=== PATIENT | male | born 1960 ===

== ENCOUNTER 2020-04-05 09:24 | Outpatient (REF) | payer OTHER, SELFPAY ==
[2020-04-05 10:28] LABS: COVID-19 Test Negative (Negative); IDNOW Serial# 55D5AD1C
== END 2020-04-05 09:25 | disposition home or self-care (01) ==
LOC: HO.EMPCOV 09:24
PROVIDERS: Visit Provider Internal Medicine
DX: Z20.828 Contact with and (suspected) exposure to other viral communicable diseases (principal)
CPT/HCPCS: 87635; C9803

== ENCOUNTER 2020-04-11 08:02 | Emergency (ER) | payer OTHER, SELFPAY ==
[2020-04-11 08:20] VITALS: BP 161/97; PULSE 79; RESP 16; O2SAT 97; BMI 29.2
[2020-04-11 08:25] VITALS: TEMP 36.6
--- NOTE | 2020-04-11 08:25 | ECG_ITS ---
Test Reason : SOB Blood Pressure : / mmHG Vent. Rate : 075 BPM Atrial Rate : 075 BPM P-R Int : 144 ms QRS Dur : 102 ms QT Int : 378 ms P-R-T Axes : 066 -03 029 degrees QTc Int : 422 ms Normal sinus rhythm Possible Left atrial enlargement Otherwise normal ECG No previous ECGs available Referred By: Kalie Phillips Electronically Signed By:JOSEPH MILLER MD
--- NOTE | 2020-04-11 08:27 | ED_ITS ---
HPI - URI/Sore Throat General Chief Complaint: Upper Respiratory Symptoms Stated Complaint: chest pain,bodyaches,coughing Time Seen by Provider: 04/11/20 08:13 Source: patient Mode of arrival: ambulatory Limitations: no limitations History of Present Illness HPI Narrative: 59-year-old male with a past medical history of high cholesterol here with multiple complaints. 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 He was tested for COVID 7 days ago was negative. Three days ago he developed body aches, headache, cough and tactile temperatures. Denies any chills. Continued symptoms through this morning. Does also have some chest discomfort. No shortness of breath, leg swelling or pain. No recent travel or surgical history. MD elicited complaint: fever and cough Onset (ago): day(s) Consistency: intermittent Severity: mild Able to tolerate fluids by mouth: Yes Exacerbating factors: nothing Relieving factors: nothing Associated symptoms: fever, myalgias, headache, cough and chest pain Treatments prior to arrival: none Related Data Allergies Allergy/AdvReac Type Severity Reaction Status Date / Time No Known Allergies Allergy Unverified 01/28/20 15:08 Review of Systems Review of Systems: Yes all other systems are reviewed and are negative Constitutional: Constitutional: Reports no additional constitutional complaints, Reports body ache(s), Reports chills, Reports fever(s), Reports headache(s) and Denies weakness Eyes: Eyes: Reports no additional eye complaints and Denies change in vision ENT: Reports system reviewed and no additional complaints, except as documented, Denies dizziness, Reports headache(s), Denies nasal congestion, Denies nasal discharge and Denies neck pain Cardiovascular: Cardiovascular: Reports no additional cardiovascular complaints, Reports chest pain, Denies leg edema and Denies dyspnea Respiratory: Respiratory: Reports no additional respiratory complaints, Denies cough and Denies dyspnea Gastrointestinal: Gastrointestinal: Reports no additional gastrointestinal complaints, Denies abdominal pain, Denies diarrhea, Denies nausea and Denies vomiting Genitourinary: Genitourinary: Denies urinary incontinence Musculoskeletal: Musculoskeletal: Reports no additional musculoskeletal complaints, Denies back pain, Denies arthralgias, Denies joint swelling, Denies neck pain, Denies numbness and Denies tingling Integumentary/Breasts: Skin/Breast: Reports system reviewed and no additional complaints, except as docu and Denies rash Neurologic: Reports system reviewed and no additional complaints, except as documented, Denies Abnormal speech present, Denies dizziness, Reports headache(s), Denies numbness, Denies tingling and Denies weakness PMFSH Past Medical History Attestation statement: The following information was validated with the patient. Source: old records reviewed and nursing notes reviewed Medical History High cholesterol High cholesterol Social History Social History Advance Directives: No Advance Directives Information Provided: Yes Physical Exam Vital Signs: Vital Signs: Last Vital Signs Temp 98 F 04/11/20 08:25 Pulse 77 04/11/20 12:19 Resp 16 04/11/20 12:19 BP 134/66 04/11/20 12:19 Pulse Ox 98 04/11/20 12:19 Body Mass Index 29.2 Const: General: cooperative, healthy appearing, comfortable and no acute distress Orientation/consciousness: patient oriented x3 Limitations: no limitations HENMT: Head: Yes normal to inspection Ears: hearing grossly normal bilaterally General nose exam: Normal external nose present Face and sinus: Yes normal facial exam Mouth: Normal oral and palatal mucosa present Throat: Yes posterior oropharynx normal Eyes: General: appearance normal, both eyes and all related structures Pupils: Equal, round and reactive pupils present Neck: Neck: Yes normal visual inspection Chest: Chest palpation & inspection: normal inspection of the chest Resp: Effort & Inspection: normal respiratory effort Auscultation: clear to auscultation bilaterally Cardio: Rate: regular rate Rhythm: regular rhythm Peripheral pulses: Peripheral pulses 2+ throughout GI: Inspection: Yes normal to inspection Palpation (GI): Soft to palpation and nontender Auscultation: normal bowel sounds Back/Spine/Pelvis: Thoracic/Lumbar Spine: thoracic and lumbar spine normal to inspection Skin: General skin exam: no rashes or lesions noted Neuro: General: patient oriented x3, no focal motor deficits and normal sensation to monofilament Cranial nerves: Yes Equal, round and reactive pupils present Cognition (Neuro): normal cognition Speech: No Abnormal speech present Gait exam (Neuro): Normal gait present Motor exam (neuro): 5/5 motor strength present throughout Extrem: General: Yes normal to inspection Course Course Course Narrative: 59-year-old male here with chest pain, body aches, tactile temps, headache, cough for 3 days. Exposure to COVID 1 week ago. Had testing which was negative. On arrival well appearing, stable vital signs and afebrile. Will need labs, chest x-ray, EKG, flu and COVID swab. 1040- COVID positive. Labs are unremarkable with the exception of mildly elevated troponin. Will plan for 3 are repeat. Chest x-ray and EKG unremarkable. Patient is stable saturations and is well-appearing. Plan for discharge home after repeat troponin. Of note, the patient does have a leukopenia and he was made aware of this. Instructed to follow up for repeat labs once he has recovered from a COVID infection. 1215- repeat troponin unchanged. Plan for discharge home. Reviewed worrisome signs and symptoms and when to return to the emergency department. Comfortable with discharge home. MDM - URI/Sore Throat MDM Narrative Medical decision making narrative: viral syndrome, COVID-19 infection, ACS, pneumonia, PE less likely pneumonia with normal chest x-ray. Less likely PE with no clinical signs and symptoms of PE with a PERC score is 0. less likely ACS with 2- tropon ins and unremarkable EKG. Medical Records Attestation: I reviewed the patient's medical records. Lab Data Attestation: I reviewed the patient's lab results. Result diagrams: 04/11/20 08:34 04/11/20 08:34 Labs: Lab Results 04/11/20 04/11/20 04/11/20 Range/Units 08:34 08:34 08:34 WBC 2.9 L (4.8-10.8) X10*3/uL RBC 5.74 (4.60-5.80) X10*6/uL Hgb 15.4 (14.0-18.0) g/dl Hct 46.4 (42-52) % MCV 80.8 (80-98) fL MCH 26.8 L (27.0-33.0) pg MCHC 33.2 (31.0-36.0) g/dl RDW 13.4 (11.0-16.0) % Plt Count 128 L (160-400) X10*3/uL MPV 10.9 (9.4-12.4) fL Immature Gran % (Auto) 0.0 (0.0-0.4) % Neut % (Auto) 50.4 (45-73) % Lymph % (Auto) 35.5 (20-40) % [place] % (Auto) 13.4 H (2-11) % Eos % (Auto) 0.7 (0-4) % Baso % (Auto) 0.0 (0-2) % Lymph # (Auto) 1.0 L (1.2-4.9) X10*3/uL [place] # (Auto) 0.4 (0.1-1.2) X10*3/uL Eos # (Auto) 0.0 (0.0-0.4) X10*3/uL Baso # (Auto) 0.0 (0.0-0.2) X10*3/uL Abs Immat Gran (auto) 0.00 (0.00-0.03) X10*3/uL Absolute Neuts (auto) 1.5 L (2.0-8.3) X10*3/uL Absolute Nucleated RBC 0.000 (0.0-0.012) X10*3/uL Nucleated RBC % (auto) 0.0 (0.0-0.2) /100WBC Sodium 139 (135-145) mmol/L Potassium 3.4 (3.3-5.1) mmol/l Chloride 102 (96-108) mmol/L Carbon Dioxide 28 (22-29) mmol/L Anion Gap 12 (12-20) BUN 16 (9-16) mg/dL Creatinine 1.24 (0.5-1.4) mg/dL Estim Creat Clear Calc 58.8 Estimated GFR 60 Random Glucose 152 H (60-115) mg/dL Calcium 8.5 (8.4-10.2) mg/dL Magnesium 2.0 (1.6-2.6) mg/dL Total Bilirubin 0.4 (0.0-1.0) mg/dL Direct Bilirubin < 0.2 (0.0-0.5) mg/dL AST 17 (5-37) U/L ALT 22 (0-40) U/L Alkaline Phosphatase 72 (39-117) U/L Troponin I High Sens 11.8 (<3.5-35.0) ng/L Total Protein 6.2 L (6.5-8.0) g/dL Albumin 3.8 (3.5-5.0) g/dL Coronavirus (PCR) (Negative) Influenza Type A (PCR) (Negative) Influenza Type B (PCR) (Negative) RSV RNA Qual (PCR) (Negative) 04/11/20 04/11/20 Range/Units 08:34 10:38 WBC (4.8-10.8) X10*3/uL RBC (4.60-5.80) X10*6/uL Hgb (14.0-18.0) g/dl Hct (42-52) % MCV (80-98) fL MCH (27.0-33.0) pg MCHC (31.0-36.0) g/dl RDW (11.0-16.0) % Plt Count (160-400) X10*3/uL MPV (9.4-12.4) fL Immature Gran % (Auto) (0.0-0.4) % Neut % (Auto) (45-73) % Lymph % (Auto) (20-40) % [place] % (Auto) (2-11) % Eos % (Auto) (0-4) % Baso % (Auto) (0-2) % Lymph # (Auto) (1.2-4.9) X10*3/uL [place] # (Auto) (0.1-1.2) X10*3/uL Eos # (Auto) (0.0-0.4) X10*3/uL Baso # (Auto) (0.0-0.2) X10*3/uL Abs Immat Gran (auto) (0.00-0.03) X10*3/uL Absolute Neuts (auto) (2.0-8.3) X10*3/uL Absolute Nucleated RBC (0.0-0.012) X10*3/uL Nucleated RBC % (auto) (0.0-0.2) /100WBC Sodium (135-145) mmol/L Potassium (3.3-5.1) mmol/l Chloride (96-108) mmol/L Carbon Dioxide (22-29) mmol/L Anion Gap (12-20) BUN (9-16) mg/dL Creatinine (0.5-1.4) mg/dL Estim Creat Clear Calc Estimated GFR Random Glucose (60-115) mg/dL Calcium (8.4-10.2) mg/dL Magnesium (1.6-2.6) mg/dL Total Bilirubin (0.0-1.0) mg/dL Direct Bilirubin (0.0-0.5) mg/dL AST (5-37) U/L ALT (0-40) U/L Alkaline Phosphatase (39-117) U/L Troponin I High Sens 11.2 (<3.5-35.0) ng/L Total Protein (6.5-8.0) g/dL Albumin (3.5-5.0) g/dL Coronavirus (PCR) POSITIVE A (Negative) Influenza Type A (PCR) NEGATIVE (Negative) Influenza Type B (PCR) NEGATIVE (Negative) RSV RNA Qual (PCR) NEGATIVE (Negative) Imaging Data Chest x-ray: Attestation: I personally reviewed and interpreted this imaging study as follows: Radiologist's impression: EXAMINATION: XR CHEST CLINICAL INFORMATION: Chest pain COMPARISON: Chest radiographs 2017, 10/14/2009 TECHNIQUE: Portable upright AP view of the chest was obtained. FINDINGS: The lungs are clear. There is no pneumothorax, pleural reaction, consolidation, or effusion groundglass opacity The heart is normal in size. The hilar and mediastinal contours are normal. There are degenerative changes right acromioclavicular joint. XR/XR chest 1V IMPRESSION: Unremarkable examination. ECG Data Attestation: I personally reviewed and interpreted this ECG as follows: ECG interpretation date: 04/11/20 ECG interpretation time: 08:45 Interpretation: normal sinus rhythm, rate of 75, normal VT, normal QRS, normal QT Discharge Plan Discharge Clinical Impression: COVID-19, Leukopenia Patient Disposition: Home, Self-Care Instructions: COVID-19 (Coronavirus Disease 2019) (ED) Additional Instructions: Take tylenol or motrin if able as needed for pain or fever. Stay well hydrated with fluids like water, gatorade and/or powerade. Wash hands at home. If living with others try to self isolate if possible. If unable wear a mask around others in your home and wash hands frequently. If COVID test is positive you will need to self isolate for a total of 14 days from when your symptoms started. You may return to work sooner if testing is negative and all symptoms resolved >72 hours. You should return to the emergency department for severe shortness of breath, chest pain or fever which does not respond to both tylenol and motrin at home. Your white blood cell count today was 2.9. Once you recovered from your C OVID infection follow-up with your doctor for repeat check Referrals: Sylvester Zaragoza MD [Primary Care Provider] - 2 days Stand Alone Forms: Work/School Release Interventions: ED Discharge Assessment Last Done: 04/11/20 12:18 Discharge Date/Time: 04/11/20 12:20
[2020-04-11 08:40] LABS: MANUAL DIFF FLAG NO
[2020-04-11 08:42] LABS: Eosinophils Percent Auto 0.7 % (0-4); Hematocrit 46.4 % (42-52); Hemoglobin 15.4 g/dl (14.0-18.0); Lymphocytes Percent Auto 35.5 % (20-40); Mean Corpuscular HGB Conc 33.2 g/dl (31.0-36.0); Mean Corpuscular Hemoglobin 26.8 pg (27.0-33.0); Mean Corpuscular Volume 80.8 fL (80-98); Mean Platelet Volume 10.9 fL (9.4-12.4); Monocytes Absolute Auto 0.4 X10*3/uL (0.1-1.2); Monocytes Percent Auto 13.4 % (2-11); Neutrophils Absolute Auto 1.5 X10*3/uL (2.0-8.3); Neutrophils Percent Auto 50.4 % (45-73); Platelet Count 128 X10*3/uL (160-400); Red Blood Count 5.74 X10*6/uL (4.60-5.80); Red Cell Distribution Width 13.4 % (11.0-16.0); White Blood Count 2.9 X10*3/uL (4.8-10.8)
[2020-04-11 09:05] LABS: Alanine Aminotransferase 22 U/L (0-40); Albumin Level 3.8 g/dL (3.5-5.0); Alkaline Phosphatase 72 U/L (39-117); Anion Gap 12 (12-20); Aspartate Amino Transferase 17 U/L (5-37); Bilirubin Direct < 0.2 mg/dL (0.0-0.5); Bilirubin Total 0.4 mg/dL (0.0-1.0); Blood Urea Nitrogen 16 mg/dL (9-16); Calcium 8.5 mg/dL (8.4-10.2); Carbon Dioxide 28 mmol/L (22-29); Chloride 102 mmol/L (96-108); Creatinine Clr Calc Pharmacy 58.8; Estimated Glomerular Filt Rate 60; Glucose Random 152 mg/dL (60-115); Potassium 3.4 mmol/l (3.3-5.1); Sodium 139 mmol/L (135-145); Total Protein 6.2 g/dL (6.5-8.0)
[2020-04-11 09:08] LABS: Troponin-I High Sensitivity 11.8 ng/L (<3.5-35.0)
[2020-04-11 09:24] LABS: Influenza A PCR NEGATIVE (Negative); Influenza B PCR NEGATIVE (Negative); Resp Syncy Virus RNA Qual PCR NEGATIVE (Negative); SARS COV2 PCR INHOUSE POSITIVE (Negative)
[2020-04-11 11:49] LABS: Troponin-I High Sensitivity 11.2 ng/L (<3.5-35.0)
[2020-04-11 12:19] VITALS: BP 134/66; PULSE 77; RESP 16; O2SAT 98
== END 2020-04-11 12:20 | disposition home or self-care (01) ==
PROVIDERS: Nurse Practitioner Family; Emergency Provider Internal Medicine; PCP Internal Medicine
DX: U07.1 COVID-19 (principal); D72.819 Decreased white blood cell count, unspecified; M79.10 Myalgia, unspecified site; R50.9 Fever, unspecified; R05 Cough; R07.89 Other chest pain
CPT/HCPCS: 0241U; 36415; 71045; 80048; 80076; 83735; 84484; 85025; 93005; 99283

== ENCOUNTER 2020-04-21 08:41 | Outpatient (REF) | payer SELFPAY ==
[2020-04-21 10:11] LABS: Cholesterol 209 mg/dL
[2020-04-21 12:18] LABS: SARS COV2 IgG Negative (Negative)
== END 2020-04-21 08:42 | disposition home or self-care (01) ==
LOC: HO.LNC 08:41
PROVIDERS: Visit Provider Pathology Anatomic Pathology & Clinical Pathology
DX: Z20.828 Contact with and (suspected) exposure to other viral communicable diseases (principal)
CPT/HCPCS: 82465; 86769

== ENCOUNTER → 2020-05-20 11:17 | Outpatient (BNVA) | payer OTHER, SELFPAY | PROVIDERS: PCP Internal Medicine | DX: Z76.89 Persons encountering health services in other specified circumstances (principal) | CPT/HCPCS: 12001; 99212 ==

== ENCOUNTER 2020-06-20 09:30 | Outpatient (REF) | payer SELFPAY ==
[2020-06-20 10:14] LABS: Cholesterol 238 mg/dL
[2020-06-20 12:17] LABS: SARS COV2 IgG Positive (Negative)
== END 2020-06-20 09:31 | disposition home or self-care (01) ==
LOC: HO.LNC 09:30
PROVIDERS: Visit Provider Pathology Anatomic Pathology & Clinical Pathology
DX: Z13.89 Encounter for screening for other disorder (principal)
CPT/HCPCS: 36415; 82465; 86769

== ENCOUNTER 2020-08-26 08:26 | Outpatient (REF) | payer OTHER, SELFPAY ==
[2020-08-26 10:08] LABS: COVID-19 Test Negative (Negative)
== END 2020-08-26 08:27 | disposition home or self-care (01) ==
LOC: HO.LAB 08:26
PROVIDERS: Visit Provider Internal Medicine
DX: Z20.822 Contact with and (suspected) exposure to COVID-19 (principal)
CPT/HCPCS: 36415; 87635; C9803; U0003; U0005

== ENCOUNTER 2021-05-09 07:36 | Outpatient (REF) | payer OTHER, SELFPAY ==
[2021-05-09 10:37] LABS: Influenza A PCR NEGATIVE (Negative); Influenza B PCR NEGATIVE (Negative); Resp Syncy Virus RNA Qual PCR NEGATIVE (Negative); SARS COV2 PCR INHOUSE NEGATIVE (Negative)
== END 2021-05-09 07:37 | disposition home or self-care (01) ==
LOC: HO.LAB 07:36
PROVIDERS: Visit Provider Internal Medicine
DX: Z20.822 Contact with and (suspected) exposure to COVID-19 (principal)
CPT/HCPCS: 0241U

== ENCOUNTER 2021-07-21 06:27 | Outpatient (REF) | payer OTHER, SELFPAY ==
[2021-07-21 07:03] LABS: MANUAL DIFF FLAG NO
[2021-07-21 07:35] LABS: Basophils Percent Auto 0.4 % (0-2); Eosinophils Absolute Auto 0.1 X10*3/uL (0.0-0.4); Eosinophils Percent Auto 1.7 % (0-4); Hematocrit 44.3 % (42.0-52.0); Imm Gran Abs Auto 0.01 X10*3/uL (0.00-0.03); Imm Gran Pct Auto 0.2 % (0.0-0.4); Lymphocytes Absolute Auto 1.4 X10*3/uL (1.2-4.9); Lymphocytes Percent Auto 29.8 % (20-40); Mean Corpuscular HGB Conc 31.6 g/dl (31.0-36.0); Mean Corpuscular Hemoglobin 25.8 pg (27.0-33.0); Mean Corpuscular Volume 81.6 fL (80.0-98.0); Mean Platelet Volume 11.1 fL (9.4-12.4); Monocytes Absolute Auto 0.4 X10*3/uL (0.1-1.2); Monocytes Percent Auto 8.8 % (2-11); Neutrophils Absolute Auto 2.8 x10*3/uL (2.0-8.3); Neutrophils Percent Auto 59.1 % (45-73); Platelet Count 199 X10*3/uL (160-400); Red Blood Count 5.43 X10*6/uL (4.60-5.80); White Blood Count 4.8 X10*3/uL (4.8-10.8)
--- NOTE | 2021-07-21 07:38 | ECG_ITS ---
Test Reason : DIZZINESS Blood Pressure : / mmHG Vent. Rate : 058 BPM Atrial Rate : 058 BPM P-R Int : 138 ms QRS Dur : 110 ms QT Int : 414 ms P-R-T Axes : 057 028 009 degrees QTc Int : 406 ms Sinus bradycardia Otherwise normal ECG When compared with ECG of 11-APR-2020 08:45, No significant change was found Referred By: Eryn Díaz Electronically Signed By:NATHEN BAUTISTA MD
[2021-07-21 07:46] LABS: Estimated Average Glucose 131 mg/dL; Hemoglobin A1c % 6.2 %
[2021-07-21 07:54] LABS: Alanine Aminotransferase 19 U/L (0-40); Albumin Level 4.1 g/dL (3.5-5.0); Alkaline Phosphatase 80 U/L (39-117); Anion Gap 10 (12-20); Aspartate Amino Transferase 17 U/L (5-37); Bilirubin Total 0.5 mg/dL (0.0-1.0); Blood Urea Nitrogen 23 mg/dL (9-16); Calcium 9.1 mg/dL (8.4-10.2); Carbon Dioxide 28 mmol/L (22-29); Chloride 105 mmol/L (96-108); Cholesterol 236 mg/dL; Estimated Glomerular Filt Rate 59; Glucose Fasting 117 mg/dL (60-99); HDL Cholesterol 49 mg/dL; LDL Cholesterol Calculated 173 mg/dl; Potassium 4.1 mmol/L (3.3-5.1); Sodium 139 mmol/L (135-145); Total Protein 6.5 g/dL (6.5-8.0); Triglycerides 71 mg/dL
[2021-07-21 08:16] LABS: TSH reflex Free T4 1.28 uIU/mL (0.32-4.0)
[2021-07-21 11:58] LABS: Folate 13.2 ng/mL (> or = 4.0); Vitamin B12 247 pg/mL (200-900)
[2021-07-27 08:06] LABS: Vitamin D 25-OH, D2 <4 ng/mL; Vitamin D 25-OH, D3 33 ng/mL; Vitamin D 25-OH, Total 33 ng/mL (30-100)
== END 2021-07-21 06:28 | disposition home or self-care (01) ==
LOC: HO.LAB 06:27
PROVIDERS: PCP Internal Medicine; Visit Provider Nurse Practitioner Acute Care
DX: R42 Dizziness and giddiness (principal)
CPT/HCPCS: 36415; 80053; 80061; 82306; 82607; 82746; 83036; 84443; 85025; 93005

== ENCOUNTER → 2021-08-30 11:15 | Outpatient (BNVA) | payer OTHER, SELFPAY | PROVIDERS: PCP Internal Medicine; Visit Provider Physician Assistant | DX: Z13.89 Encounter for screening for other disorder (principal) | CPT/HCPCS: 12001; 73140; 99204 ==

== ENCOUNTER → 2021-09-01 09:12 | Outpatient (BNVA) | payer OTHER, SELFPAY | PROVIDERS: PCP Internal Medicine; Visit Provider Physician Assistant | DX: Z13.89 Encounter for screening for other disorder (principal) | CPT/HCPCS: 99213 ==

== ENCOUNTER → 2021-09-06 13:50 | Outpatient (BNVA) | payer OTHER, SELFPAY | PROVIDERS: PCP Internal Medicine; Visit Provider Physician Assistant | DX: Z13.89 Encounter for screening for other disorder (principal) | CPT/HCPCS: 99213 ==

== ENCOUNTER 2021-11-29 05:59 | Outpatient (REF) | payer OTHER, SELFPAY ==
[2021-11-29 06:04] LABS: MANUAL DIFF FLAG NO
[2021-11-29 07:33] LABS: Basophils Percent Auto 0.7 % (0-2); Eosinophils Absolute Auto 0.1 X10*3/uL (0.0-0.4); Eosinophils Percent Auto 1.7 % (0-4); Hematocrit 42.1 % (42.0-52.0); Hemoglobin 13.6 g/dl (14.0-18.0); Imm Gran Abs Auto 0.02 X10*3/uL (0.00-0.03); Imm Gran Pct Auto 0.3 % (0.0-0.4); Lymphocytes Absolute Auto 1.5 X10*3/uL (1.2-4.9); Lymphocytes Percent Auto 25.7 % (20-40); Mean Corpuscular HGB Conc 32.3 g/dl (31.0-36.0); Mean Corpuscular Hemoglobin 25.6 pg (27.0-33.0); Mean Corpuscular Volume 79.1 fL (80.0-98.0); Mean Platelet Volume 11.6 fL (9.4-12.4); Monocytes Absolute Auto 0.6 X10*3/uL (0.1-1.2); Monocytes Percent Auto 10.4 % (2-11); Neutrophils Absolute Auto 3.6 x10*3/uL (2.0-8.3); Neutrophils Percent Auto 61.2 % (45-73); Platelet Count 194 X10*3/uL (160-400); Red Blood Count 5.32 X10*6/uL (4.60-5.80); White Blood Count 5.9 X10*3/uL (4.8-10.8)
[2021-11-29 07:59] LABS: Alanine Aminotransferase 23 U/L (0-40); Alkaline Phosphatase 100 U/L (39-117); Anion Gap 12 (12-20); Aspartate Amino Transferase 16 U/L (5-37); Bilirubin Total 0.3 mg/dL (0.0-1.0); Blood Urea Nitrogen 22 mg/dL (9-16); Calcium 8.9 mg/dL (8.4-10.2); Carbon Dioxide 30 mmol/L (22-29); Chloride 102 mmol/L (96-108); Cholesterol 181 mg/dL; Estimated Glomerular Filt Rate 53; Glucose Fasting 133 mg/dL (60-99); HDL Cholesterol 39 mg/dL; LDL Cholesterol Calculated 113 mg/dl; Potassium 3.7 mmol/L (3.3-5.1); Sodium 140 mmol/L (135-145); Total Protein 6.4 g/dL (6.5-8.0); Triglycerides 145 mg/dL
== END 2021-11-29 06:00 | disposition home or self-care (01) ==
LOC: HO.LAB 05:59
PROVIDERS: PCP Internal Medicine; Visit Provider Nurse Practitioner Acute Care
DX: E78.5 Hyperlipidemia, unspecified (principal)
CPT/HCPCS: 36415; 80053; 80061; 85025

== ENCOUNTER 2021-12-08 08:04 | Day surgery (SDC) | payer OTHER, SELFPAY ==
[2021-12-04 10:12] VITALS: BMI 28.6
--- NOTE | 2021-12-07 09:54 | HO.ANESPROP2 ---
Documented by User: Teresa Hawthorne NP 12/07/21 09:57 HPI - Anesthesia Eval Consult details Narrative: 61yo M for Colonoscopy [facility] Active Problems Active Problems: All Active Problems (Updated 12/04/21 @ 10:13 by Prerna Weinstein RN) COVID-19 (Acute) Hypertension (Acute) Family history of colon cancer (Acute) Impaired fasting blood sugar (Acute) Anemia (Acute) Type 2 diabetes mellitus with hyperglycemia (Acute) Tubular adenoma of colon (Acute) Hyperlipidemia (Acute) Past Medical History Medical History Colon cancer screening Dizziness History of COVID-19 Hyperlipidemia Lightheadedness Nausea Negative depression screening Tubular adenoma of colon Vitamin D deficiency Surgical History Surgical History H/O colonoscopy Social History Social History Housing: House Patient Tobacco Use Status: Former Tobacco user Tobacco use type: Cigarette Years Smoked: 15 e-Cigarette/Vaping Use: Never Used Use of substances other than those prescribed or required for medical reasons: No Are you DNR?: No Advance Directives: No Advance Directives Information Provided: Yes service: No Current occupational status: employed Cognitive needs: No Hearing needs: No Vision needs: Yes Meds Allergies Allergy/AdvReac Type Severity Reaction Status Date / Time No Known Allergies Allergy Verified 11/30/21 14:36 Exam Exam Date and Time: December 07, 2021 0954 Height,Weight and Vital Signs: Height 5 ft 4 in Weight 75.75 kg Pertinent Lab Results Pertinent Lab Results: Laboratory Tests 11/29/21 11/29/21 06:02 06:02 WBC 5.9 Hgb 13.6 L Hct 42.1 Plt Count 194 Sodium 140 Potassium 3.7 Chloride 102 Carbon Dioxide 30 H BUN 22 H Creatinine 1.36 Narrative Narrative: EKG 07/2021 Vent. Rate : 058 BPM ? ? Atrial Rate : 058 BPM ?? P-R Int : 138 ms? QRS Dur : 110 ms ? ? QT Int : 414 ms ? ? ? P-R-T Axes : 057 028 009 degrees ?? QTc Int : 406 ms ? Sinus bradycardia Otherwise normal ECG When compared with ECG of 11-APR-2020 08:45, No significant change was found Assessment and Plan Assessment Anesthesia Assessment: Chart Reviewed Documented by User: Nikki Barnett MD 12/08/21 08:53 PMFSH Past Medical History Medical History Colon cancer screening Dizziness History of COVID-19 Hyperlipidemia Lightheadedness Nausea Negative depression screening Tubular adenoma of colon Vitamin D deficiency Surgical History Surgical History H/O colonoscopy History of Problems with Anesthesia: No Social History Social History Housing: House Patient Tobacco Use Status: Former Tobacco user Tobacco use type: Cigarette Years Smoked: 15 e-Cigarette/Vaping Use: Never Used Use of substances other than those prescribed or required for medical reasons: No Are you DNR?: No Advance Directives: No Advance Directives Information Provided: Yes service: No Current occupational status: employed Cognitive needs: No Hearing needs: No Vision needs: Yes Meds Allergies Allergy/AdvReac Type Severity Reaction Status Date / Time No Known Allergies Allergy Verified 11/30/21 14:36 Exam Airway Mallampati Class: II TM Dist: >3cm Neck ROM: Full Loose/Missing/Broken Teeth: No Heart: RRR Lungs: CTA Assessment and Plan Assessment Anesthesia Assessment: Anesthesia Plan Discussed Final Anesthetic Review History of Problems with Anesthesia: No NPO: Yes ASA Class: II Final Preanesthetic Review: Meds/Allgs Chart Reviewed, Consent Obtained/Reviewed and Anes Risks/Benef Reviewed Patient Risk: Low Procedure Risk: Low Anesthetic Plan Anesthetic Plan: MAC: Disposition: Standard PACU
[2021-12-08 08:10] VITALS: BMI 28.1
--- NOTE | 2021-12-08 08:16 | MHC.SHP ---
Pre-Procedural Eval Section A Date of Service: 12/08/21 The patient is an INPATIENT: No The History & Physical has been completed within 30 days and I have reviewed it.: No Section B Chief Complaint: screening Details of Present Illness: Colon cancer screening, history of colon polyps, family history of colon cancer Relevant Family History (Specify if Yes): Yes Relevant Social History: Tobacco Use (Former smoker) Present Medications: see Short Stay Collaborative assessment Medical History: Significant History (Colon cancer screening Dizziness Hyperlipidemia Lightheadedness Nausea Negative depression screening Tubular adenoma of colon Vitamin D deficiency) History of Previous Operations: Relevant previous surgery/procedure and date(s) (History of colonoscopy) Allergies: Allergies Allergy/AdvReac Type Severity Reaction Status Date / Time No Known Allergies Allergy Verified 11/30/21 14:36 Review of Systems Sugical H&P ROS: Negative: Constitution, Cardiovascular, Respiratory and Gastrointestinal Exam Surgical H&P Exam: Normal: Heart, Normal: Lungs, Normal: Extremities and Normal: Abdomen Plan Diagnosis/Plan: Unchanged I have reviewed the history and physical and performed a pertinent physical examination on my patient. No changes have occurred unless specified.
--- NOTE | 2021-12-08 08:19 | P.BOP_ITS ---
Brief Operative Note Date of Service: 12/08/21 Pre-op diagnosis: Colon cancer screening, history of colon polyps, family history of colon cancer Post-op diagnosis: other (Colon polyp, diverticulosis, hemorrhoids) Procedure: COLONOSCOPY TILL CECUM WITH SNARE POLYPECTOMY Consent: Indications for the procedure and potential complications of bleeding, perforation, reaction to medications and missed diagnosis were discussed with the patient and informed consent was obtained. Instrument: Olympus CF H 190 L variable stiffness adult colonoscope Monitoring: Vital signs and clinical assessment, intermittent blood pressure monitoring, continuous EKG monitoring, Pulse oximetry and Carbon Dioxide monitoring were done throughout the procedure. Colon withdrawl time was 14 minutes. Procedure: The patient was placed in the left lateral decubitis position and pre-procedure medications were administered. After a digital rectal examination of the ano-rectum, the video colonoscope was inserted into the rectum and advanced through the colon to the cecum. The colonoscope was slowly withdrawn in a retrograde panoramic fashion and the colon mucosa was carefully examined including a retroflexed view of the rectum. Findings and interventions are described below. Procedure Difficulty: Without difficulty Findings: Terminal Ileum: Not evaluated Cecum: Normal Ascending Colon: A 7-8 mm sessile polyp removed with a cold snare Transverse Colon: Normal Descending Colon: Normal Sigmoid Colon: Moderate diverticulosis Rectum: Normal Ano-rectum: Small internal hemorrhoids Colon preparation: Good Impression and Post Procedure Diagnosis: Colonoscopy Findings: One small polyp removed Moderate diverticulosis seen in the sigmoid colon Small hemorrhoids on retroflexed exam. Plan: Letter will be sent with pathology results Repeat Colonoscopy interval based on path results - in 5 years if polyps are adenomatous and 10 years if polyps are hyperplastic. Above findings were reviewed with the patient and colon polyps and diverticulosis handouts were given in the discharge area Surgeon: Yuri Soler MD Anesthesia: MAC Was an Pleating Supervisor used for this Procedure?: Yes Pleating Supervisor: Heather Blake Estimated blood loss (mL): 0 Pathology: other (A. ascending colon polyp) Condition: stable Disposition: PACU
[2021-12-08] MEDS: Lactated Ringers 1,000 ML 100 ML IVCONT (08:44)
--- NOTE | 2021-12-08 09:04 | W.PM.OPN ---
Operative Note Operative Note Date of Service: 12/08/21 Narrative: Pre-op diagnosis: Colon cancer screening, history of colon polyps, family history of colon cancer Post-op diagnosis:?other (Colon polyp, diverticulosis, hemorrhoids) Procedure: COLONOSCOPY TILL CECUM WITH SNARE POLYPECTOMY Consent: Indications for the procedure and potential complications of bleeding, perforation, reaction to medications and missed diagnosis were discussed with the patient and informed consent was obtained. Instrument: Olympus CF H 190 L variable stiffness adult colonoscope Monitoring: Vital signs and clinical assessment, intermittent blood pressure monitoring, continuous EKG monitoring, Pulse oximetry and Carbon Dioxide monitoring were done throughout the procedure. Colon withdrawl time was 14 minutes. Procedure: The patient was placed in the left lateral decubitis position and pre-procedure medications were administered. After a digital rectal examination of the ano-rectum, the video colonoscope was inserted into the rectum and advanced through the colon to the cecum. The colonoscope was slowly withdrawn in a retrograde panoramic fashion and the colon mucosa was carefully examined including a retroflexed view of the rectum. Findings and interventions are described below. Procedure Difficulty: Without difficulty Findings: Terminal Ileum: Not evaluated Cecum:? Normal Ascending Colon:? A 7-8 mm sessile polyp removed with a cold snare Transverse Colon:? Normal Descending Colon:? Normal Sigmoid Colon:? Moderate diverticulosis Rectum:? Normal Ano-rectum:? Small internal hemorrhoids Colon preparation:? Good? Impression and Post Procedure Diagnosis: Colonoscopy Findings: One small polyp removed Moderate diverticulosis seen in the sigmoid colon Small hemorrhoids on retroflexed exam. Plan: Letter will be sent with pathology results Repeat Colonoscopy interval based on path results - in 5 years if polyps are adenomatous and 10 years if polyps are hyperplastic. Above findings were reviewed with the patient and colon polyps and diverticulosis handouts were given in the discharge area Surgeon: Yuri Soler MD Anesthesia:?MAC Was an Cooling System Operator used for this Procedure?:?Yes Cooling System Operator:?Heather Blake Estimated blood loss (mL):?0 Pathology:?other (A. ascending colon polyp) Condition:?stable Disposition:?PACU
[2021-12-08 09:21] LABS: COVID-19 Test Negative (Negative)
[2021-12-08 09:54] VITALS: BP 111/69; PULSE 69; RESP 16; TEMP 36.1; O2SAT 96
[2021-12-08 10:09] VITALS: BP 111/68; PULSE 65; RESP 14; TEMP 36.6; O2SAT 96
[2021-12-08 10:24] VITALS: BP 115/73; PULSE 65; RESP 14; TEMP 36.6; O2SAT 96
[2021-12-08 10:39] VITALS: BP 112/67; PULSE 74; RESP 14; TEMP 36.6; O2SAT 98
== END 2021-12-08 11:25 | disposition home or self-care (01) ==
PROVIDERS: Anesthesiology; PCP Internal Medicine; Visit Provider Internal Medicine Gastroenterology
PROC: 0DJD8ZZ Inspection of Lower Intestinal Tract, Via Natural or Artificial Opening Endoscopic (ICD-10-PCS; CPT 45378; principal; 2021-12-08 09:20)
DX: Z12.11 Encounter for screening for malignant neoplasm of colon (principal); Z80.0 Family history of malignant neoplasm of digestive organs; Z86.010 Personal history of colon polyps; D12.2 Benign neoplasm of ascending colon; K57.30 Diverticulosis of large intestine without perforation or abscess without bleeding; K64.8 Other hemorrhoids; I10 Essential (primary) hypertension; E78.00 Pure hypercholesterolemia, unspecified; E11.65 Type 2 diabetes mellitus with hyperglycemia; R42 Dizziness and giddiness; D64.9 Anemia, unspecified; E55.9 Vitamin D deficiency, unspecified; Z79.899 Other long term (current) drug therapy; Z20.822 Contact with and (suspected) exposure to COVID-19; Z86.16 Personal history of COVID-19; Z87.891 Personal history of nicotine dependence
CPT/HCPCS: 45385; 87635; 88305

== ENCOUNTER → 2022-02-20 10:57 | Outpatient (BNVA) | payer OTHER, SELFPAY | PROVIDERS: PCP Internal Medicine; Visit Provider Dietitian, Registered | DX: E11.65 Type 2 diabetes mellitus with hyperglycemia (principal) | CPT/HCPCS: 97802 ==

== ENCOUNTER 2022-02-27 06:26 | Outpatient (REF) | payer OTHER, SELFPAY ==
[2022-02-27 06:15] LABS: MANUAL DIFF FLAG NO
[2022-02-27 07:30] LABS: Basophils Percent Auto 0.6 % (0-2); Eosinophils Absolute Auto 0.1 X10*3/uL (0.0-0.4); Eosinophils Percent Auto 1.4 % (0-4); Hematocrit 41.1 % (42.0-52.0); Hemoglobin 13.4 g/dl (14.0-18.0); Imm Gran Abs Auto 0.01 X10*3/uL (0.00-0.03); Imm Gran Pct Auto 0.2 % (0.0-0.4); Lymphocytes Absolute Auto 1.3 X10*3/uL (1.2-4.9); Lymphocytes Percent Auto 25.1 % (20-40); Mean Corpuscular HGB Conc 32.6 g/dl (31.0-36.0); Mean Corpuscular Hemoglobin 26.1 pg (27.0-33.0); Mean Corpuscular Volume 80.1 fL (80.0-98.0); Mean Platelet Volume 10.6 fL (9.4-12.4); Monocytes Absolute Auto 0.5 X10*3/uL (0.1-1.2); Monocytes Percent Auto 10.3 % (2-11); Neutrophils Absolute Auto 3.2 x10*3/uL (2.0-8.3); Neutrophils Percent Auto 62.4 % (45-73); Platelet Count 178 X10*3/uL (160-400); Red Blood Count 5.13 X10*6/uL (4.60-5.80); Retic HGB Equivalent 31.2 pg (30.0-35.0); Reticulocyte Percent 1.7 % (0.5-1.8); Reticulocytes Absolute 0.089 X10*6/uL (0.026-0.095); White Blood Count 5.1 X10*3/uL (4.8-10.8)
[2022-02-27 08:15] LABS: Creatinine Urine 100.09 mg/dL; Microalbumin Urine < 5.0 mg/L
[2022-02-27 08:25] LABS: Ferritin 13 ng/mL (20-250)
[2022-02-27 08:45] LABS: Alanine Aminotransferase 27 U/L (0-40); Albumin Level 4.1 g/dL (3.5-5.0); Alkaline Phosphatase 77 U/L (39-117); Anion Gap 15 (12-20); Aspartate Amino Transferase 21 U/L (5-37); Bilirubin Total 0.4 mg/dL (0.0-1.0); Blood Urea Nitrogen 31 mg/dL (9-16); Calcium 8.9 mg/dL (8.4-10.2); Carbon Dioxide 28 mmol/L (22-29); Chloride 102 mmol/L (96-108); Cholesterol 157 mg/dL; Estimated Glomerular Filt Rate 52; Glucose Random 112 mg/dL (60-115); HDL Cholesterol 50 mg/dL; Iron 53 mcg/dL (45-160); LDL Cholesterol Calculated 98 mg/dl; Percent Iron Saturation 13 % (15-50); Potassium 4.1 mmol/L (3.3-5.1); Sodium 141 mmol/L (135-145); Total Iron Binding Capacity 409 mcg/dL (228-428); Total Protein 6.4 g/dL (6.5-8.0); Triglycerides 45 mg/dL; Unsaturated Iron Binding 356 ug/dL
[2022-02-27 09:36] LABS: Estimated Average Glucose 131 mg/dL; Hemoglobin A1C 149.9557 umol/L; Hemoglobin A1c % 6.2 %
== END 2022-02-27 06:27 | disposition home or self-care (01) ==
LOC: HO.LAB 06:26
PROVIDERS: PCP Internal Medicine; Visit Provider Internal Medicine
DX: E11.65 Type 2 diabetes mellitus with hyperglycemia (principal); D64.9 Anemia, unspecified; E78.5 Hyperlipidemia, unspecified; E78.00 Pure hypercholesterolemia, unspecified
CPT/HCPCS: 36415; 80053; 80061; 82043; 82728; 83036; 83540; 85025; 85045

== ENCOUNTER 2022-03-31 13:37 | Emergency (ER) | payer OTHER, SELFPAY ==
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
[2022-03-31 13:41] VITALS: BP 138/79; PULSE 82; RESP 17; TEMP 36.6; O2SAT 98; BMI 27.4
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
== END 2022-03-31 16:16 | disposition home or self-care (01) ==
PROVIDERS: Emergency Provider Emergency Medicine Emergency Medical Services; PCP Internal Medicine
DX: S46.911A Strain of unspecified muscle, fascia and tendon at shoulder and upper arm level, right arm, initial encounter (principal); S16.1XXA Strain of muscle, fascia and tendon at neck level, initial encounter; V43.52XA Car driver injured in collision with other type car in traffic accident, initial encounter; Y93.89 Activity, other specified; Y92.414 Local residential or business street as the place of occurrence of the external cause; Y99.9 Unspecified external cause status; Z87.891 Personal history of nicotine dependence
CPT/HCPCS: 73030; 99282; 99283

== ENCOUNTER 2022-06-28 10:00 | Outpatient (RCR) | payer OTHER, SELFPAY ==
--- NOTE | 2022-04-11 11:01 | MHC.PT.EP ---
[facility] [place] Office [place] Office [place] Office [address] Diego Beasley [address] [phone] F: [phone] F: [phone] F: [phone] F: [phone] Physical Therapy Plan of Care Date of Evaluation: Date of Surgery: N/A Diagnosis: pain in right shoulder, cervicalgia, low back pain unspecified Assessment: Pt is a pleasant and motivated 61yo M who presents to PT s/p [facility] on 03/30/22. He presents to PT with pain in neck, R shoulder, and R low back pain. Upon assessment, he presents with current impairments in pain, decreased cervical ROM, decreased R shoulder ROM, decreased lumbar ROM, soft tissue restrictions, decreased strength, decreased muscle length, and impaired posture. He is limited functionally by twisting, bending, overhead ADLs, lifting, and reaching. He is an excellent candidate for skilled PT in order to address current impairments to facilitate return to PLOF. He is recommended to be seen 2x/week for 4 weeks and will be reassessed at that time. Frequency and Duration: The patient will be seen 2x/week for 4 weeks Short Term Goals: Pt will be I with HEP to promote self management of symptoms Pt will improve R shoulder flexion by at least 10 degrees Pt will demonstrate improvements in postural awareness and body mechanics throughout the day Chcf Goals: Pt will perform overhead ADLs without compensation with minimal to no pain Pt will achieve full ROM throughout lumbar spine with minimal to no pain Pt will demonstrate improvements in function as evidenced by statistically significant improvement in Neck Pain and Disability Index Questionnaire Treatment Plan: Modalities to reduce pain, spasms and effusion. Manual therapy to restore motion and function. Therapeutic exercise to improve strength and flexibility. Neuromuscular re-education for posture and balance. Therapeutic activities to return to functional activities of daily living. Electronically signed by: Mary Jo Hargrove, PT, DPT Please sign and return to therapist. Thank you for your referral.
--- NOTE | 2022-06-28 11:14 | MHC.PT.DC ---
[facility] [place] Office [place] Office [place] Office [address] Diego Beasley [address] [phone] F: [phone] F: [phone] F: [phone] F: [phone] Physical Therapy Discharge Report Diagnosis: pain in right shoulder, cervicalgia, low back pain unspecified Date of Surgery: N/A Date of Evaluation: 04/10/22 Date of Discharge: 06/28/22 Treatments to Date: 18 Cancellations to Date: No Shows to Date: Discharge Status: Achieved Goals Improved Function Independent with HEP Discharge Summary: Pt has made excellent progress since SOC. He has minimal to no pain. He has met his STGs and his LTGs. He has full ROM all planes of lumbar spine. He has full ROM throughout R shoulder. He is able to perform lifting and overhead activities with good mechanics and minimal to no discomfort. He is I and compliant with HEP. Pt is being D/C from skilled PT. Provided pt with printed, updated copy of HEP and GTB and pt verbalized understanding. Pt reports no further questions or concerns for PT at this time. Electronically signed by: Mary Jo Hargrove, PT, DPT Please sign and return to therapist. Thank you for your referral.
== END 2022-06-28 11:14 | disposition home or self-care (01) ==
LOC: HO.PT 10:00
PROVIDERS: PCP Internal Medicine; Visit Provider Internal Medicine
DX: M54.2 Cervicalgia (principal)
CPT/HCPCS: 97110; 97140; 97162; 97530

== ENCOUNTER → 2022-06-29 10:05 | Outpatient (BNVA) | payer OTHER, SELFPAY | PROVIDERS: PCP Internal Medicine; Visit Provider Dietitian, Registered | DX: E11.65 Type 2 diabetes mellitus with hyperglycemia (principal) | CPT/HCPCS: 97803 ==

== ENCOUNTER 2022-10-23 06:05 | Outpatient (REF) | payer OTHER, SELFPAY ==
[2022-10-23 06:16] LABS: MANUAL DIFF FLAG NO
[2022-10-23 07:31] LABS: Basophils Percent Auto 0.6 % (0-2); Eosinophils Absolute Auto 0.1 X10*3/uL (0.0-0.4); Eosinophils Percent Auto 1.7 % (0-4); Hematocrit 43.7 % (42.0-52.0); Hemoglobin 14.3 g/dl (14.0-18.0); Imm Gran Abs Auto 0.02 X10*3/uL (0.00-0.03); Imm Gran Pct Auto 0.4 % (0.0-0.4); Lymphocytes Absolute Auto 1.6 X10*3/uL (1.2-4.9); Lymphocytes Percent Auto 29.4 % (20-40); Mean Corpuscular HGB Conc 32.7 g/dl (31.0-36.0); Mean Corpuscular Hemoglobin 27.3 pg (27.0-33.0); Mean Corpuscular Volume 83.6 fL (80.0-98.0); Mean Platelet Volume 11.4 fL (9.4-12.4); Monocytes Absolute Auto 0.6 X10*3/uL (0.1-1.2); Monocytes Percent Auto 10.4 % (2-11); Neutrophils Absolute Auto 3.1 x10*3/uL (2.0-8.3); Neutrophils Percent Auto 57.5 % (45-73); Platelet Count 150 X10*3/uL (160-400); Red Blood Count 5.23 X10*6/uL (4.60-5.80); Red Cell Distribution Width 13.5 % (11.0-16.0); Retic HGB Equivalent 33.3 pg (30.0-35.0); Reticulocyte Percent 1.3 % (0.5-1.8); Reticulocytes Absolute 0.068 X10*6/uL (0.026-0.095); White Blood Count 5.4 X10*3/uL (4.8-10.8)
[2022-10-23 07:36] LABS: Estimated Average Glucose 117 mg/dL; Hemoglobin A1c % 5.7 %
[2022-10-23 08:10] LABS: Alanine Aminotransferase 21 U/L (0-40); Alkaline Phosphatase 70 U/L (39-117); Anion Gap 11 (12-20); Aspartate Amino Transferase 19 U/L (5-37); Bilirubin Total 0.6 mg/dL (0.0-1.0); Blood Urea Nitrogen 28 mg/dL (9-16); Calcium 9.1 mg/dL (8.4-10.2); Carbon Dioxide 28 mmol/L (22-29); Chloride 105 mmol/L (96-108); Estimated Glomerular Filt Rate 52; Glucose Random 103 mg/dL (60-115); Iron 131 mcg/dL (45-160); Percent Iron Saturation 42 % (15-50); Potassium 3.8 mmol/L (3.3-5.1); Sodium 140 mmol/L (135-145); Total Iron Binding Capacity 312 mcg/dL (228-428); Total Protein 6.2 g/dL (6.5-8.0); Unsaturated Iron Binding 181 ug/dL
[2022-10-23 08:34] LABS: Ferritin 39 ng/mL (20-250)
[2022-10-23 09:38] LABS: Creatinine Urine 68.36 mg/dL
== END 2022-10-23 06:06 | disposition home or self-care (01) ==
LOC: HO.LAB 06:05
PROVIDERS: PCP Internal Medicine; Visit Provider Internal Medicine
DX: E11.65 Type 2 diabetes mellitus with hyperglycemia (principal); D64.9 Anemia, unspecified; E78.5 Hyperlipidemia, unspecified
CPT/HCPCS: 36415; 80053; 82728; 83036; 83540; 85025; 85045

== ENCOUNTER → 2022-11-02 08:27 | Outpatient (BNVA) | payer OTHER, SELFPAY | PROVIDERS: PCP Internal Medicine | DX: Z13.89 Encounter for screening for other disorder (principal) | CPT/HCPCS: 29125; 73110; 99203 ==

== ENCOUNTER → 2022-11-05 08:02 | Outpatient (BNVA) | payer OTHER, SELFPAY | PROVIDERS: PCP Internal Medicine; Visit Provider Physician Assistant Medical | DX: Z13.89 Encounter for screening for other disorder (principal) | CPT/HCPCS: 99213 ==

== ENCOUNTER 2023-03-14 05:54 | Outpatient (REF) | payer OTHER, SELFPAY ==
[2023-03-14 06:09] LABS: MANUAL DIFF FLAG NO
[2023-03-14 06:55] LABS: Basophils Percent Auto 0.5 % (0-2); Eosinophils Absolute Auto 0.1 X10*3/uL (0.0-0.4); Eosinophils Percent Auto 1.6 % (0-4); Hemoglobin 15.4 g/dl (14.0-18.0); Imm Gran Abs Auto 0.02 X10*3/uL (0.00-0.03); Imm Gran Pct Auto 0.4 % (0.0-0.4); Immature Retic Fraction 8.1 % (2.3-13.4); Lymphocytes Absolute Auto 1.5 X10*3/uL (1.2-4.9); Lymphocytes Percent Auto 25.5 % (20-40); Mean Corpuscular HGB Conc 32.8 g/dl (31.0-36.0); Mean Corpuscular Hemoglobin 27.6 pg (27.0-33.0); Mean Corpuscular Volume 84.4 fL (80.0-98.0); Mean Platelet Volume 10.9 fL (9.4-12.4); Monocytes Absolute Auto 0.6 X10*3/uL (0.1-1.2); Monocytes Percent Auto 9.8 % (2-11); Neutrophils Absolute Auto 3.5 x10*3/uL (2.0-8.3); Neutrophils Percent Auto 62.2 % (45-73); Platelet Count 174 X10*3/uL (160-400); Red Blood Count 5.57 X10*6/uL (4.60-5.80); Red Cell Distribution Width 13.1 % (11.0-16.0); Retic HGB Equivalent 31.9 pg (30.0-35.0); Reticulocyte Percent 1.3 % (0.5-1.8); Reticulocytes Absolute 0.072 X10*6/uL (0.026-0.095); White Blood Count 5.7 X10*3/uL (4.8-10.8)
[2023-03-14 07:06] LABS: Estimated Average Glucose 123 mg/dL; Hemoglobin A1c % 5.9 % (<6.0)
[2023-03-14 07:36] LABS: Alanine Aminotransferase 23 U/L (0-40); Alkaline Phosphatase 68 U/L (39-117); Anion Gap 11 (12-20); Aspartate Amino Transferase 18 U/L (5-37); Bilirubin Total 0.6 mg/dL (0.0-1.0); Blood Urea Nitrogen 18 mg/dL (9-16); Calcium 9.4 mg/dL (8.4-10.2); Carbon Dioxide 29 mmol/L (22-29); Chloride 106 mmol/L (96-108); Cholesterol 161 mg/dL (<200); Estimated Glomerular Filt Rate > 60; Glucose Random 114 mg/dL (60-115); HDL Cholesterol 51 mg/dL (>40); Iron 119 mcg/dL (45-160); LDL Cholesterol Calculated 102 mg/dL (<100); Percent Iron Saturation 37 % (15-50); Potassium 4.5 mmol/L (3.3-5.1); Sodium 141 mmol/L (135-145); Total Iron Binding Capacity 322 mcg/dL (228-428); Total Protein 6.6 g/dL (6.5-8.0); Triglycerides 43 mg/dL (<150); Unsaturated Iron Binding 203 ug/dL
[2023-03-14 07:47] LABS: Ferritin 52 ng/mL (20-250); Free T4 (Free Thyroxine) 0.78 ng/dL (0.71-1.85); Thyroid Stimulating Hormone 2.12 uIU/mL (0.32-4.0)
[2023-03-14 08:02] LABS: Prostate Specific Antigen Scr 2.92 ng/mL (<0.05-4.0); Vitamin B12 400 pg/mL (200-900)
[2023-03-14 09:31] LABS: Creatinine Urine 200.55 mg/dL; Microalbum/Creatinine Ratio Ur 3.9 ug/mg cr (<30)
== END 2023-03-14 05:55 | disposition home or self-care (01) ==
LOC: HO.LAB 05:54
PROVIDERS: PCP Internal Medicine; Visit Provider Internal Medicine
DX: Z12.5 Encounter for screening for malignant neoplasm of prostate (principal); E11.65 Type 2 diabetes mellitus with hyperglycemia; D64.9 Anemia, unspecified; E78.00 Pure hypercholesterolemia, unspecified
CPT/HCPCS: 36415; 80053; 80061; 82043; 82570; 82607; 82728; 82746; 83036; 83540; 84153; 84439; 84443; 85025; 85045

== ENCOUNTER 2023-03-29 09:49 | Outpatient (AMB) | payer OTHER, SELFPAY ==
[2023-03-29 10:00] VITALS: BP 116/68; PULSE 87; O2SAT 97; BMI 28.9
--- NOTE | 2023-03-29 10:00 | MHC.PC.OV ---
Vital Signs 03/29/23 10:00 Height 5 ft 4 in Weight 168 lb 8 oz BMI 28.9 BP 116/68 Blood Pressure Location Lt brachial Position Sitting Pulse 87 Pulse Source Pulse Oximeter Pulse Oximetry (%) 97 Oxygen Delivery Method Room Air Intake Visit Reasons: DM, Anemia Laboratory Monitor Required: No Accompanied by: Self / Same As Patient Allergies No Known Allergies Allergy (Verified 03/29/23 10:03) Tobacco use date assessed: 06/25/22 Dental Screening Dental Screen Date: 03/29/23 Did you have a dental visit in the last 12 months?: No Did you have a dental problem in the last 6 months where you did not have access to dental care?: No Was dental information given to patient?: No (Dentures) HPI DM, Anemia HPI Details 62-year-old overweight male with diabetes mellitus hypertension hypercholesterol E anemia coming in for follow-up. Last seen in 10/04/2022. Patient is up-to-date with colonoscopy November 2021 [facility] Medical History (Updated 11/02/22 @ 09:31 by Lady Birch PA-C) History of COVID-19 Vitamin D deficiency Tubular adenoma of colon Family history of colon cancer Hyperlipidemia Lightheadedness Nausea Dizziness Surgical History History of colonoscopy Family History Father Colon cancer Paternal Uncle Colon cancer Paternal Grandfather Colon cancer Maternal Aunt Breast cancer Social History Housing: House Patient Tobacco Use Status: Former Tobacco user Tobacco use type: Cigarette Years Smoked: 15 e-Cigarette/Vaping Use: Never Used service: No Current occupational status: employed Cognitive needs: No Hearing needs: No Vision needs: Yes Questionnaire Thrive Questionnaire Date Thrive assessed: 06/25/22 STEVENSON-7 AMB Questionnaire STEVENSON-7 Date STEVENSON - 7 assessed: 07/03/22 Source: Developed by Drs. Jason Gloria, Valerie Del Castillo, Cirilo Esqueda and colleagues, with an educational dominik from [employer]. Physical exam (Primary Care) Vital Signs: Last Vital Signs Pulse 87 03/29/23 10:00 BP 116/68 03/29/23 10:00 Pulse Ox 97 03/29/23 10:00 Oxygen Delivery Method Room Air 03/29/23 10:00 BMI result Body Mass Index 28.9 Tobacco/Smoking Status: Tobacco use Status Tobacco use date assessed 06/25/22 03/29/23 10:03 Patient Tobacco Use Status Former Tobacco user 03/29/23 10:03 Tobacco use type Cigarette 03/29/23 10:03 e-Cigarette/Vaping Use Never Used 03/29/23 10:03 Thrive Assessment: Date of Thrive Assessment Date Thrive assessed 06/25/22 03/29/23 10:03 Const General: alert; No acute distress Eyes Conjunctivae: conjunctivae normal Resp Auscultation: clear to auscultation bilaterally Cardio Rate: regular rate Rhythm: regular rhythm GI Inspection: Yes normal to inspection Extrem General: Yes normal to inspection and No edema Office Procedures Flu Questionnaire Does the patient have a severe egg allergy?: No Does the patient have severe life threatening allergies?: No Does the patient have a fever or illness today?: No Has the patient ever had Guillain-Taylor Syndrome?: No Has the patient ever had any past reaction to a flu shot?: No Immunizations flu vacc [id number] 6mos up(PF) 60 mcg(15 mcgx4)/0.5 mL IM syringe Performing Provider: Sylvester Zaragoza MD [facility] Administered by: SARAH Landon on 03/29/23 10:09 Dose Route Admin Location Dispensed Lot Number Expiration Date NDC Copper Etcher 0.5 mL IM Left Deltoid 0.5 mL [id number] 11/10/23 [id number] [facility] Given Date VIS Provided VIS Publication Date 03/29/23 Single Vaccine 20 Eligibility Eligibility Date Funding Source Not [facility] Eligible 03/29/23 Private Assessment and Plan Assessment & Plan (1) Type 2 diabetes mellitus with hyperglycemia: Comment: [email or web address] Code(s): E11.65 - Type 2 diabetes mellitus with hyperglycemia Plan: Decrease the amount of carbohydrate intake, pasta, bread, rice and potatoes are all sugar and that is aside from all the sweet stuff, remember that fruits are good but they are Sweet also. Hemoglobin A1c goal of less than 6.5. Patient is controlled on diet (2) Hypertension: Code(s): I10 - Essential (primary) hypertension Qualifiers: Hypertension type: primary hypertension Qualified Code(s): I10 - Essential (primary) hypertension Plan: Continue with blood pressure medication. Decrease salt intake and exercise patient is on lisinopril 5 mg once a day (3) Hyperlipidemia: Code(s): E78.5 - Hyperlipidemia, unspecified Plan: Avoid fried foods, chicken skin, eggs, butter margarine, pastries and meat. Be it pork or beef they have a lot of cholesterol LDL goal of less than 100 and triglyceride of less than 150 patient is on atorvastatin 20 mg once a day (4) Anemia: Code(s): D64.9 - Anemia, unspecified Plan: Resolved Orders: Orders Influenza [id number] Immunization Today Z23 - Encounter for immunization Lipid Panel 3 Months E11.65 - Type 2 diabetes mellitus with hyperglycemia, E78.00 - Pure hypercholesterolemia, unspecified Comprehensive Met. Panel 3 Months E11.65 - Type 2 diabetes mellitus with hyperglycemia Hemoglobin A1c 3 Months E11.65 - Type 2 diabetes mellitus with hyperglycemia Medications: Changed From atorvastatin 20 mg PO BEDTIME 90 tabs 3RF E78.5 - Hyperlipidemia, unspecified To atorvastatin 40 mg PO BEDTIME 90 tabs 3RF 90 days E78.5 - Hyperlipidemia, unspecified Coding Level of Care Code Est Pt Level 4 (63335) Diagnoses Type 2 diabetes mellitus with hyperglycemia E11.65 Primary hypertension I10 Hypertension type: primary hypertension Hyperlipidemia E78.5 Anemia D64.9
== END 2023-03-29 10:40 | disposition home or self-care (01) ==
PROVIDERS: PCP Internal Medicine; Visit Provider Internal Medicine
DX: E11.65 Type 2 diabetes mellitus with hyperglycemia (principal); I10 Essential (primary) hypertension; E78.5 Hyperlipidemia, unspecified; D64.9 Anemia, unspecified; Z23 Encounter for immunization
CPT/HCPCS: 90471; 90686; 99214

== ENCOUNTER 2023-07-04 06:06 | Outpatient (REF) | payer OTHER, SELFPAY ==
[2023-07-04 08:01] LABS: Estimated Average Glucose 128 mg/dL; Hemoglobin A1c % 6.1 % (<6.0)
[2023-07-04 08:22] LABS: Alanine Aminotransferase 29 U/L (0-40); Albumin Level 4.1 g/dL (3.5-5.0); Alkaline Phosphatase 82 U/L (39-117); Anion Gap 14 (12-20); Aspartate Amino Transferase 19 U/L (5-37); Bilirubin Total 0.4 mg/dL (0.0-1.0); Blood Urea Nitrogen 18 mg/dL (9-16); Calcium 9.3 mg/dL (8.4-10.2); Carbon Dioxide 29 mmol/L (22-29); Chloride 104 mmol/L (96-108); Cholesterol 152 mg/dL (<200); Estimated Glomerular Filt Rate > 60; Glucose Random 114 mg/dL (60-115); HDL Cholesterol 53 mg/dL (>40); LDL Cholesterol Calculated 90 mg/dL (<100); Potassium 3.6 mmol/L (3.3-5.1); Sodium 143 mmol/L (135-145); Total Protein 6.6 g/dL (6.5-8.0); Triglycerides 49 mg/dL (<150)
== END 2023-07-04 06:07 | disposition home or self-care (01) ==
LOC: HO.LAB 06:06
PROVIDERS: PCP Internal Medicine; Visit Provider Internal Medicine
DX: E11.65 Type 2 diabetes mellitus with hyperglycemia (principal); E78.00 Pure hypercholesterolemia, unspecified
CPT/HCPCS: 36415; 80053; 80061; 83036

== ENCOUNTER 2023-07-12 09:27 | Outpatient (AMB) | payer OTHER, SELFPAY ==
[2023-07-12 09:31] VITALS: BP 116/60; PULSE 63; O2SAT 99; BMI 29.0
--- NOTE | 2023-07-12 09:31 | MHC.PC.OV ---
Vital Signs 07/12/23 09:31 Height 5 ft 4 in Weight 169 lb BMI 29.0 BP 116/60 Blood Pressure Location Lt brachial Position Sitting Pulse 63 Pulse Source Pulse Oximeter Pulse Oximetry (%) 99 Oxygen Delivery Method Room Air Intake Visit Reasons: cholesterol Intake Note: Patient is here to follow up on cholesterol Ccie Required: No Allergies No Known Allergies Allergy (Verified 07/12/23 09:32) Medication List - Last Reconciled 07/12/23 by Sylvester Zaragoza MD ascorbic acid (vitamin C) (Vitamin C) 500 mg PO DAILY atorvastatin 40 mg PO BEDTIME 90 days blood sugar diagnostic (FreeStyle Lite Strips) As directed check the BS QD blood-glucose meter (FreeStyle Lite Meter kit) As directed cyclobenzaprine 10 mg PO BEDTIME PRN ferrous sulfate 325 mg PO DAILY ibuprofen 800 mg PO TID lancets (FreeStyle Lancets) As directed check BS QD lisinopril 5 mg PO DAILY miscellaneous medical supply (Blood Pressure Cuff) As directed, take blood pressure 2 times a day, and document. Tobacco use date assessed: 07/12/23 Dental Screening Dental Screen Date: 07/12/23 HPI cholesterol HPI Details 62-year-old overweight male with a history of diabetes mellitus hypertension hypercholesterolemia chronic anemia coming in for follow-up last seen in March 2023. Patient's last colonoscopy [address] Soler having tubular adenoma. [facility] Medical History (Updated 11/02/22 @ 09:31 by Lady Birch PA-C) History of COVID-19 Vitamin D deficiency Tubular adenoma of colon Family history of colon cancer Hyperlipidemia Lightheadedness Nausea Dizziness Surgical History History of colonoscopy Family History Father Colon cancer Paternal Uncle Colon cancer Paternal Grandfather Colon cancer Maternal Aunt Breast cancer Social History Housing: House Patient Tobacco Use Status: Former Tobacco user Tobacco use type: Cigarette Years Smoked: 15 e-Cigarette/Vaping Use: Never Used service: No Current occupational status: employed Cognitive needs: No Hearing needs: No Vision needs: Yes Questionnaire PHQ-9 Over the last 2 weeks, how often have you been bothered by any of the following problems? 1. Little interest or pleasure in doing things: not at all 2. Feeling down, depressed, or hopeless: not at all 3. Trouble falling or staying asleep, or sleeping too much: not at all 4. Feeling tired or having little energy: not at all 5. Poor appetite or overeating: not at all 6. Feeling bad about yourself - or that you are a failure or have let yourself or your family down: not at all 7. Trouble concentrating on things, such as reading the newspaper or watching television: not at all 8. Moving or speaking so slowly that other people could have noticed. Or the opposite - being so fidgety or restless that you have been moving around a lot more than usual: not at all 9. Thoughts that you would be better off or of hurting yourself in some way: not at all Total score: 0 Depression Screening Interpretation: Negative Depression Screening Done: Yes Source: Developed by Drs. Jason Gloria, Valerie Del Castillo, Cirilo Esqueda and colleagues, with an educational dominik from [employer]. Thrive Questionnaire Date Thrive assessed: 07/12/23 I am a: Patient What is your living situation today?: I have a steady place to live Within the past 12 months, did the food you bought not last and you didn't have the money to get more?: Never true Within the past 12 months, did you worry whether your food would run out before you got money to buy more?: Never true Do you have trouble paying for medicines?: No Do you have trouble getting transportation to medical appointments?: No Do you have trouble paying your heating and electricity bill?: No Do you have trouble taking care of your child, family member or friend?: No Do you have trouble with day-to-day activities such as bathing, preparing meals, shopping, managing finances, etc.?: No Are you currently unemployed and looking for a job?: No Are you interested in more education?: No Please select the resources that you would like help with: None THRIVE Score: 0 AUDIT C Alcohol Use Questionnaire (AUDIT-C) 1. How often do you have a drink containing alcohol?: Never Total Score: 0 Score Reviewed/Action Taken: No STEVENSON-7 AMB Questionnaire STEVENSON-7 Date STEVENSON - 7 assessed: 07/12/23 Source: Developed by Drs. Jason Gloria, Valerie Del Castillo, Cirilo Esqueda and colleagues, with an educational dominik from [employer]. Physical exam (Primary Care) Vital Signs: Last Vital Signs Pulse 63 07/12/23 09:31 BP 116/60 07/12/23 09:31 Pulse Ox 99 07/12/23 09:31 Oxygen Delivery Method Room Air 07/12/23 09:31 BMI result Body Mass Index 29.0 Tobacco/Smoking Status: Tobacco use Status Tobacco use date assessed 07/12/23 07/12/23 09:33 Patient Tobacco Use Status Former Tobacco user 07/12/23 09:33 Tobacco use type Cigarette 07/12/23 09:33 e-Cigarette/Vaping Use Never Used 07/12/23 09:33 PHQ-9: PHQ-9 Score PHQ-9: Total score 0 07/12/23 09:33 Depression Screening Interpretation: Negative Thrive Assessment: Date of Thrive Assessment Date Thrive assessed 07/12/23 07/12/23 09:33 Const General: alert; No acute distress Eyes Conjunctivae: conjunctivae normal Resp Auscultation: clear to auscultation bilaterally Cardio Rate: regular rate Rhythm: regular rhythm GI Inspection: Yes normal to inspection Extrem General: Yes normal to inspection and No edema Assessment and Plan Assessment & Plan (1) Type 2 diabetes mellitus with hyperglycemia: Comment: jannet Code(s): E11.65 - Type 2 diabetes mellitus with hyperglycemia Plan: Decrease the amount of carbohydrate intake, pasta, bread, rice and potatoes are all sugar and that is aside from all the sweet stuff, remember that fruits are good but they are Sweet also. Hemoglobin A1c goal of less than 6.5. Presently diet controlled (2) Hypertension: Code(s): I10 - Essential (primary) hypertension Qualifiers: Hypertension type: primary hypertension Qualified Code(s): I10 - Essential (primary) hypertension Plan: Continue with blood pressure medication. Decrease salt intake and exercise on lisinopril 5 mg once a day (3) Hyperlipidemia: Code(s): E78.5 - Hyperlipidemia, unspecified Plan: Avoid fried foods, chicken skin, eggs, butter margarine, pastries and meat. Be it pork or beef they have a lot of cholesterol LDL goal of less than 100 and triglyceride of less than 150 patient is on atorvastatin 40 mg once a day (4) Anemia: Code(s): D64.9 - Anemia, unspecified Plan: Resolved Medications: Refilled blood sugar diagnostic (FreeStyle Lite Strips) As directed check the BS QD 100 ea 3RF E11.65 - Type 2 diabetes mellitus with hyperglycemia lancets (FreeStyle Lancets) As directed check BS QD 100 ea 3RF E11.65 - Type 2 diabetes mellitus with hyperglycemia Coding Level of Care Code Est Pt Level 4 (11536) Diagnoses Type 2 diabetes mellitus with hyperglycemia E11.65 Primary hypertension I10 Hypertension type: primary hypertension Hyperlipidemia E78.5 Anemia D64.9 Additional Codes PHQ-9 - 50748 - PHQ-9 Billing: ([id number])
== END 2023-07-12 10:15 | disposition home or self-care (01) ==
PROVIDERS: PCP Internal Medicine; Visit Provider Internal Medicine
DX: E11.65 Type 2 diabetes mellitus with hyperglycemia (principal); I10 Essential (primary) hypertension; E78.5 Hyperlipidemia, unspecified; D64.9 Anemia, unspecified
CPT/HCPCS: 99214

== ENCOUNTER 2024-01-14 09:21 | Outpatient (AMB) | payer OTHER, SELFPAY ==
[2024-01-14 09:25] VITALS: BP 132/58; PULSE 69; O2SAT 97; BMI 29.0
--- NOTE | 2024-01-14 09:25 | MHC.PC.OV ---
Vital Signs 01/14/24 09:25 Height 5 ft 4 in Weight 169 lb BMI 29.0 BP 132/58 L Blood Pressure Location Lt brachial Position Sitting Pulse 69 Pulse Source Pulse Oximeter Pulse Oximetry (%) 97 Oxygen Delivery Method Room Air Intake Visit Reasons: 6 Month F/U Allergies No Known Allergies Allergy (Verified 01/14/24 09:25) Tobacco use date assessed: 07/12/23 Dental Screening Dental Screen Date: 07/12/23 HPI 6 Month F/U HPI Details 63-year-old overweight male with diabetes mellitus hypertension hypercholesterolemia coming in for follow-up. Last seen in 07/31/2023. Patient had colonoscopy in 11/29/2021. [facility] Medical History (Updated 11/02/22 @ 09:31 by Lady Birch PA-C) History of COVID-19 Vitamin D deficiency Tubular adenoma of colon Family history of colon cancer Hyperlipidemia Lightheadedness Nausea Dizziness Surgical History History of colonoscopy Family History Father Colon cancer Paternal Uncle Colon cancer Paternal Grandfather Colon cancer Maternal Aunt Breast cancer Social History Housing: House Patient Tobacco Use Status: Former Tobacco user Tobacco use type: Cigarette Years Smoked: 15 e-Cigarette/Vaping Use: Never Used service: No Current occupational status: employed Cognitive needs: No Hearing needs: No Vision needs: Yes Questionnaire PHQ-9 Over the last 2 weeks, how often have you been bothered by any of the following problems? 1. Little interest or pleasure in doing things: not at all 2. Feeling down, depressed, or hopeless: not at all 3. Trouble falling or staying asleep, or sleeping too much: not at all 4. Feeling tired or having little energy: not at all 5. Poor appetite or overeating: not at all 6. Feeling bad about yourself - or that you are a failure or have let yourself or your family down: not at all 7. Trouble concentrating on things, such as reading the newspaper or watching television: not at all 8. Moving or speaking so slowly that other people could have noticed. Or the opposite - being so fidgety or restless that you have been moving around a lot more than usual: not at all 9. Thoughts that you would be better off or of hurting yourself in some way: not at all Total score: 0 Depression Screening Interpretation: Negative Depression Screening Done: Yes Source: Developed by Drs. Jason Gloria, Valerie Del Castillo, Cirilo Esqueda and colleagues, with an educational dominik from [employer]. Thrive Questionnaire Date Thrive assessed: 07/12/23 AUDIT C Alcohol Use Questionnaire (AUDIT-C) 1. How often do you have a drink containing alcohol?: Never Total Score: 0 Score Reviewed/Action Taken: No STEVENSON-7 AMB Questionnaire STEVENSON-7 Date STEVENSON - 7 assessed: 07/12/23 Source: Developed by Drs. Jason Gloria, Valerie Del Castillo, Cirilo Esqueda and colleagues, with an educational dominik from [employer]. Physical exam (Primary Care) Vital Signs: Last Vital Signs Pulse 69 01/14/24 09:25 BP 132/58 L 01/14/24 09:25 Pulse Ox 97 01/14/24 09:25 Oxygen Delivery Method Room Air 01/14/24 09:25 BMI result Body Mass Index 29.0 Tobacco/Smoking Status: Tobacco use Status Tobacco use date assessed 07/12/23 01/14/24 09:26 Patient Tobacco Use Status Former Tobacco user 01/14/24 09:26 Tobacco use type Cigarette 01/14/24 09:26 e-Cigarette/Vaping Use Never Used 01/14/24 09:26 PHQ-9: PHQ-9 Score PHQ-9: Total score 0 01/14/24 09:40 Depression Screening Interpretation: Negative Thrive Assessment: Date of Thrive Assessment Date Thrive assessed 07/12/23 01/14/24 09:26 Const General: alert; No acute distress Eyes Conjunctivae: conjunctivae normal Resp Auscultation: clear to auscultation bilaterally Cardio Rate: regular rate Rhythm: regular rhythm GI Inspection: Yes normal to inspection Extrem General: Yes normal to inspection and No edema Results AMB Hemoglobin A1c AMB Hemoglobin A1c 6.5 % Last Edit by America Vann CMA on 01/14/24 09:41 Results Reviewed Results Reviewed: Laboratory Last Values Hgb A1c (Clinic) 6.5 % (4.0-6.0) H 01/14/24 09:26 Assessment and Plan Assessment & Plan (1) Type 2 diabetes mellitus with hyperglycemia: Comment: jannet Code(s): E11.65 - Type 2 diabetes mellitus with hyperglycemia Plan: Decrease the amount of carbohydrate intake, pasta, bread, rice and potatoes are all sugar and that is aside from all the sweet stuff, remember that fruits are good but they are Sweet also. Hemoglobin A1c goal of less than 6.5. Patient is on diet control. (2) Hypertension: Code(s): I10 - Essential (primary) hypertension Qualifiers: Hypertension type: primary hypertension Qualified Code(s): I10 - Essential (primary) hypertension Plan: Continue with blood pressure medication. Decrease salt intake and exercise continue with lisinopril 5 mg once a day (3) Hyperlipidemia: Code(s): E78.5 - Hyperlipidemia, unspecified Plan: Avoid fried foods, chicken skin, eggs, butter margarine, pastries and meat. Be it pork or beef they have a lot of cholesterol LDL goal of less than 100 and triglyceride of less than 150 07/02/2023. Orders: Orders Complete Blood Count Auto Diff 6 Months E11.65 - Type 2 diabetes mellitus with hyperglycemia Creatinine Urine 6 Months E11.65 - Type 2 diabetes mellitus with hyperglycemia Microalbumin, Random (w Creat) 6 Months E11.65 - Type 2 diabetes mellitus with hyperglycemia Free T4 (Free Thyroxine) 6 Months E11.65 - Type 2 diabetes mellitus with hyperglycemia Thyroid Stimulating Hormone 6 Months E11.65 - Type 2 diabetes mellitus with hyperglycemia Vitamin B12 and Folate 6 Months E11.65 - Type 2 diabetes mellitus with hyperglycemia Hemoglobin A1c 6 Months E11.65 - Type 2 diabetes mellitus with hyperglycemia Lipid Panel 6 Months E11.65 - Type 2 diabetes mellitus with hyperglycemia, E78.00 - Pure hypercholesterolemia, unspecified AMB Hemoglobin A1c Today Z13.9 - Encounter for screening, unspecified Comprehensive Met. Panel 6 Months E11.65 - Type 2 diabetes mellitus with hyperglycemia Prostate Specific Antigen Scr 6 Months E11.65 - Type 2 diabetes mellitus with hyperglycemia Coding Level of Care Code Est Pt Level 4 (47014) Diagnoses Type 2 diabetes mellitus with hyperglycemia E11.65 Primary hypertension I10 Hypertension type: primary hypertension Hyperlipidemia E78.5 Additional Codes PHQ-9 - 86439 - PHQ-9 Billing: ([id number])
== END 2024-01-14 10:04 | disposition home or self-care (01) ==
PROVIDERS: PCP Internal Medicine; Visit Provider Internal Medicine
DX: E11.65 Type 2 diabetes mellitus with hyperglycemia (principal); I10 Essential (primary) hypertension; E78.5 Hyperlipidemia, unspecified
CPT/HCPCS: 83036; 99214

== ENCOUNTER 2024-08-08 07:47 | Outpatient (REF) | payer OTHER, SELFPAY ==
[2024-08-08 08:25] LABS: MANUAL DIFF FLAG NO
[2024-08-08 08:36] LABS: Basophils Percent Auto 0.6 % (0-2); Eosinophils Percent Auto 0.8 % (0-4); Hematocrit 43.5 % (42.0-52.0); Hemoglobin 14.3 g/dl (14.0-18.0); Imm Gran Abs Auto 0.01 X10*3/uL (0.00-0.03); Imm Gran Pct Auto 0.2 % (0.0-0.4); Lymphocytes Absolute Auto 1.2 X10*3/uL (1.2-4.9); Lymphocytes Percent Auto 25.1 % (20-40); Mean Corpuscular HGB Conc 32.9 g/dl (31.0-36.0); Mean Corpuscular Hemoglobin 26.8 pg (27.0-33.0); Mean Corpuscular Volume 81.6 fL (80.0-98.0); Mean Platelet Volume 10.5 fL (9.4-12.4); Monocytes Absolute Auto 0.4 X10*3/uL (0.1-1.2); Monocytes Percent Auto 8.6 % (2-11); Neutrophils Absolute Auto 3.1 x10*3/uL (2.0-8.3); Neutrophils Percent Auto 64.7 % (45-73); Platelet Count 169 X10*3/uL (160-400); Red Blood Count 5.33 X10*6/uL (4.60-5.80); Red Cell Distribution Width 13.8 % (11.0-16.0); White Blood Count 4.8 X10*3/uL (4.8-10.8)
[2024-08-08 08:42] LABS: Estimated Average Glucose 137 mg/dL; Hemoglobin A1c % 6.4 % (<6.0)
[2024-08-08 09:19] LABS: Creatinine Urine 235.29 mg/dL; Microalbum/Creatinine Ratio Ur 3.4 ug/mg cr (<30)
[2024-08-08 09:30] LABS: Alanine Aminotransferase 35 U/L (0-40); Albumin Level 3.9 g/dL (3.5-5.0); Alkaline Phosphatase 77 U/L (39-117); Anion Gap 8 (12-20); Aspartate Amino Transferase 21 U/L (5-37); Bilirubin Total 0.5 mg/dL (0.0-1.0); Blood Urea Nitrogen 19 mg/dL (9-16); Calcium 9.1 mg/dL (8.4-10.2); Carbon Dioxide 29 mmol/L (22-29); Chloride 107 mmol/L (96-108); Cholesterol 137 mg/dL (<200); Estimated Glomerular Filt Rate 59; Glucose Random 133 mg/dL (60-115); HDL Cholesterol 46 mg/dL (>40); LDL Cholesterol Calculated 81 mg/dL (<100); Potassium 4.6 mmol/L (3.3-5.1); Sodium 139 mmol/L (135-145); Total Protein 6.2 g/dL (6.5-8.0); Triglycerides 52 mg/dL (<150)
[2024-08-08 09:46] LABS: Free T4 (Free Thyroxine) 0.93 ng/dL (0.71-1.85); Thyroid Stimulating Hormone 1.03 uIU/mL (0.32-4.0)
[2024-08-08 09:56] LABS: Folate 11.5 ng/mL (> or = 4.0); Prostate Specific Antigen Scr 4.64 ng/mL (<0.05-4.0); Vitamin B12 345 pg/mL (200-900)
== END 2024-08-08 07:48 | disposition home or self-care (01) ==
LOC: HO.LAB 07:47
PROVIDERS: PCP Internal Medicine; Visit Provider Internal Medicine
DX: E11.65 Type 2 diabetes mellitus with hyperglycemia (principal); E78.00 Pure hypercholesterolemia, unspecified; Z12.5 Encounter for screening for malignant neoplasm of prostate
CPT/HCPCS: 36415; 80053; 80061; 82043; 82570; 82607; 82746; 83036; 84153; 84439; 84443; 85025

== ENCOUNTER 2024-08-18 12:18 | Outpatient (AMB) | payer OTHER, SELFPAY ==
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
[2024-08-18 12:33] VITALS: BP 120/68; PULSE 90; TEMP 36.2; O2SAT 97; BMI 28.4
== END 2024-08-18 13:11 | disposition home or self-care (01) ==
LOC: HO.HMCH 12:18
PROVIDERS: PCP Internal Medicine; Visit Provider Internal Medicine
DX: Z00.00 Encounter for general adult medical examination without abnormal findings (principal); E11.65 Type 2 diabetes mellitus with hyperglycemia; E78.5 Hyperlipidemia, unspecified; I10 Essential (primary) hypertension; R97.20 Elevated prostate specific antigen [PSA]; E66.3 Overweight; R35.0 Frequency of micturition

== ENCOUNTER → 2024-08-18 12:18 | Outpatient (BNVA) | payer OTHER, SELFPAY | PROVIDERS: PCP Internal Medicine; Visit Provider Internal Medicine ==

== ENCOUNTER 2024-09-04 06:53 | Outpatient (REF) | payer OTHER, SELFPAY ==
[2024-09-04 07:17] LABS: Appearance Urine Clear; Color Urine Yellow; Glucose Urine UA Negative (Negative); Leukocyte Esterase Urine Negative (Negative); Nitrite Urine Negative (Negative); PH 5.5 (5.0-9.0); Urine Blood Negative (Negative); Urine Ketones Negative (Negative); Urine Protein Negative (Neg-Trace)
[2024-09-04 08:09] LABS: PSA,Total (Free>4and<10) 3.67 ng/mL (0.00-4.00)
== END 2024-09-04 06:54 | disposition home or self-care (01) ==
LOC: HO.LAB 06:53
PROVIDERS: PCP Internal Medicine; Visit Provider Internal Medicine
DX: R97.20 Elevated prostate specific antigen [PSA] (principal); R30.0 Dysuria; R35.0 Frequency of micturition; Z12.5 Encounter for screening for malignant neoplasm of prostate
CPT/HCPCS: 36415; 81003; 84153

== ENCOUNTER 2024-09-09 07:43 | Outpatient (REF) | payer OTHER, SELFPAY ==
--- NOTE | ~2024-09-09 | US_ITS ---
EXAMINATION: US BLADDER HISTORY: R35.0 - Frequency of micturition COMPARISON: There are no prior studies for comparison. FINDINGS: Sonographic examination of the urinary bladder was performed before and after voiding. Before voiding, the urinary bladder measured 6.0 x 8.5 x 7.0, for an estimated volume of187 mL. After voiding, the urinary bladder measured 4.3 x 2.2 x 4.5, for an estimated volume of 22 mL. No intrinsic bladder abnormality is identified. Bilateral ureteral jets are identified. The prostate measured 2.9 x 3.4 x 3.2 cm. US/US bladder IMPRESSION: Unremarkable ultrasound of the urinary bladder. Post void bladder residual of 22 mL. Electronically signed by: Jason Rasmussen MD 09/09/2024 04:30 PM EDT
== END 2024-09-09 07:44 | disposition home or self-care (01) ==
LOC: HO.US 07:43
PROVIDERS: PCP Internal Medicine; Visit Provider Internal Medicine
DX: R35.0 Frequency of micturition (principal)
CPT/HCPCS: 76857

== ENCOUNTER → 2024-09-09 07:45 | Outpatient (BNV) | payer OTHER, SELFPAY | PROVIDERS: PCP Internal Medicine; Visit Provider Radiology Diagnostic Radiology | DX: R39.14 Feeling of incomplete bladder emptying (principal) | CPT/HCPCS: 76857 ==

== ENCOUNTER 2024-09-29 08:53 | Outpatient (AMB) | payer OTHER, SELFPAY ==
[2024-09-29 09:05] VITALS: BP 114/70; PULSE 77; RESP 18; TEMP 36.6; O2SAT 98; BMI 28.5
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
== END 2024-09-29 13:41 | disposition home or self-care (01) ==
LOC: HO.HMCH 08:54
PROVIDERS: PCP Internal Medicine
DX: R07.81 Pleurodynia (principal); Z91.81 History of falling

== ENCOUNTER 2024-09-29 08:53 | Outpatient (REF) | payer OTHER, SELFPAY ==
--- NOTE | ~2024-09-29 | XR_ITS ---
CLINICAL HISTORY: R07.81 - Pleurodynia Frontal chest and left ribs three views Comparison: None Findings: Lungs are clear without acute infiltrates. Heart size is normal. No pneumothorax. No acute fracture or dislocation in the rib cage. No significant focal bony abnormalities. Impression: No significant abnormalities This document has been electronically signed by: Mic Kinney MD on 09/29/2024 22:31:42
== END 2024-09-29 08:54 | disposition home or self-care (01) ==
LOC: HO.XRAY 08:53
PROVIDERS: PCP Internal Medicine
DX: R07.81 Pleurodynia (principal)
CPT/HCPCS: 71101

== ENCOUNTER → 2024-09-29 10:33 | Outpatient (BNV) | payer OTHER, SELFPAY | PROVIDERS: PCP Internal Medicine; Visit Provider Radiology Diagnostic Radiology | DX: R07.81 Pleurodynia (principal) | CPT/HCPCS: 71101 ==

== ENCOUNTER 2024-11-30 12:59 | Outpatient (AMB) | payer OTHER, SELFPAY ==
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
[2024-11-30 13:15] VITALS: BP 114/66; PULSE 83; TEMP 36.2; O2SAT 97; BMI 28.6
--- OUTSIDE RECORDS SUMMARY | 2024-11-30 13:44 | XMS_ITS | Patient Health Record ---
[facility] Address [address] [place] [address] Care Team Providers Care Brown Sourer Name Role Phone NikNemogeorge Primary Care Provider Bin Pop Unavailable [phone] Reason For Referral No Information Medications Medication SIG (Take, Route, Frequency, Duration) Notes Start Date End Date Status Ciclopirox Olamine 0.77 % 1 application to affected area Externally Twice a day; Duration: 30 days Active Social History Tobacco Use: Social History Observation Description Date Details (start date - stop date) Former Smoker NA - NA Tobacco Use/Smoking Question Answer Notes Are you a: former smoker When did you stop smoking? 2014 Additional Findings: Tobacco Non-User Ex-very he parul cigarette smoker (40+/day) Alcohol Screen Question Answer Notes Did you have a drink containing alcohol in the p ast year? No Points 0 Interpretation Negative Tobacco use other than smoking: Question Answer Notes Are you an other tobacco user? No Problems Problem Type SNOMED Code ICD Code Onset Dates Problem Status W/U Status Risk Notes Problem Tinea unguium (B35.1) Active confirmed Plan Of Treatment No Information Insurance Providers Payer Name Payer Address Payer Phone Subscriber Number Group Number Insured Name Patient Relationship to Insured Coverage Start Date Coverage End Date [employer] [address] [address] [place] [address] [phone] [id number] Orion Dsouza Self - patient is the insured Medical (General) History Medical History History ICD Code Chicken pox
--- OUTSIDE RECORDS SUMMARY | 2024-11-30 13:44 | XMS_ITS | Patient Health Record ---
Author Organization [facility] Address [address] [place] [address] Care Team Providers Care [employer] Name Role Phone Sylvester Zaragoza MD Primary Care Provider Jason Mendes [phone] Reason For Referral No Information Social History Tobacco Use: Social History Observation Description Date Details (start date - stop date) Former Smoker NA - NA Tobacco Use/Smoking Question Answer Notes Patient is a former smoker How long has it been since you last smoked? 1-5 years Alcohol Screen Question Answer Notes Did you have a drink contain ing alcohol in the past year? Yes How often did you have a dri nk containing alcohol in the past year? Monthly or less (1 point) How many drinks did you have on a typical day when you were drinking in the past year? 1 or 2 drinks (0 point) How often did you have 6 or more drinks on one occasion in the past year? Never (0 point) Points 1 Interpretation Negative Section Notes: Stopped smoking 2014, no sig alcohol Problems Problem Type SNOMED Code ICD Code Onset Dates Problem Status W/U Status Risk Notes Problem 099448723 Encounter for screening for malignant neoplasm of colon (Z12.11) Active confirmed Problem 754123706 History of adenomatous polyp of colon (Z86.010) Active confirmed Problem 719288421 Preprocedural examination (Z01.818) Active confirmed Problem [id number] Family history o f colon cancer (Z80.0) Active confirmed Plan Of Treatment Future Test Test Name Order Date COLONOSCOPY 12/12/2016 Insurance Providers Payer Name Payer Address Payer Phone Subscriber Number Group Number Insured Name Patient Relationship to Insured Coverage Start Date Coverage End Date [facility] [address] [place] [phone] [id number] ELTON MATRINEZ Self - patient is the insured Medical (General) History Medical History History ICD Code Colonoscopy 02-22-2011---[address] tubular adenoma removed--minimal diverticulosis and internal hemorrhoids Denies PR,DM,CVA,Lung disease,renal dise ase
== END 2024-11-30 13:37 | disposition home or self-care (01) ==
LOC: HO.HMCH 13:00
PROVIDERS: PCP Internal Medicine; Visit Provider Internal Medicine
DX: E11.65 Type 2 diabetes mellitus with hyperglycemia (principal); I10 Essential (primary) hypertension; E78.5 Hyperlipidemia, unspecified; Z91.81 History of falling; Z13.9 Encounter for screening, unspecified

== ENCOUNTER → 2024-11-30 12:59 | Outpatient (BNVA) | payer OTHER, SELFPAY | PROVIDERS: PCP Internal Medicine; Visit Provider Internal Medicine | DX: E11.65 Type 2 diabetes mellitus with hyperglycemia (principal); I10 Essential (primary) hypertension; E78.5 Hyperlipidemia, unspecified; Z91.81 History of falling | CPT/HCPCS: 83036 ==

== ENCOUNTER 2025-03-04 12:28 | Outpatient (AMB) | payer OTHER, SELFPAY ==
[2025-03-04 12:38] VITALS: BP 118/68; PULSE 78; TEMP 36.2; O2SAT 98; BMI 29.4
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
== END 2025-03-04 13:07 | disposition home or self-care (01) ==
LOC: HO.HMCH 12:28
PROVIDERS: PCP Internal Medicine; Visit Provider Internal Medicine
DX: E11.65 Type 2 diabetes mellitus with hyperglycemia (principal); I10 Essential (primary) hypertension; E78.5 Hyperlipidemia, unspecified

== ENCOUNTER → 2025-03-04 12:28 | Outpatient (BNVA) | payer OTHER, SELFPAY | PROVIDERS: PCP Internal Medicine; Visit Provider Internal Medicine | DX: E11.65 Type 2 diabetes mellitus with hyperglycemia (principal); I10 Essential (primary) hypertension; E78.00 Pure hypercholesterolemia, unspecified; Z79.899 Other long term (current) drug therapy | CPT/HCPCS: 83036 ==